=== PATIENT | male | born 1955 | race Caucasian/White ===

== ENCOUNTER 2022-07-07 13:34 | Emergency (ER) | payer MEDICARE, SELFPAY ==
--- NOTE | ~2022-07-07 | XR_ITS ---
EXAMINATION: XR TOES, RIGHT CLINICAL INFORMATION: Reduction of dislocated fourth toe. COMPARISON: None available. TECHNIQUE: 3 views of the right toes were obtained. FINDINGS: There are no fractures or dislocations. No joint effusion is identified. No bone, joint or soft tissue abnormality is demonstrated. XR/XR toe RT min 2V IMPRESSION: Good anatomic alignment without overt fracture.
[2022-07-07 13:37] VITALS: BP 150/97; PULSE 90; RESP 18; TEMP 36.6; O2SAT 96; BMI 32.4
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
[2022-07-07] MEDS: oxyCODONE HCl Immed Release 5 MG TABLET 10 MG PO (13:48)
--- NOTE | 2022-07-07 13:51 | PC.NURSE ---
pt medicated per APR, for 5/10 4th toe pain, pt sts his pain increases when he moves or put pressure on the toe. WCTM call aggarwal within reach
== END 2022-07-07 15:18 | disposition home or self-care (01) ==
PROVIDERS: Emergency Provider Emergency Medicine Emergency Medical Services; PCP Physician Assistant
DX: S93.104D Unspecified dislocation of right toe(s), subsequent encounter (principal); V49.9XXD Car occupant (driver) (passenger) injured in unspecified traffic accident, subsequent encounter
CPT/HCPCS: 28660; 73660; 99283; 99284